=== PATIENT | female | born 1975 | race Caucasian/White ===

== ENCOUNTER 2019-12-20 10:21 | Emergency (ER) | payer OTHER ==
[~2019-12-20] VITALS: Ht 160 cm; Wt 100.0 kg
--- NOTE | 2019-12-20 10:56 | NUR ---
pt presents to ED with c/o right lower abd pain onset last night, nausea and vaginal bleeding onset this am. pt notes vaginal bleeding is as if she was on her period, however states "I just got done with my period and usually I'm very regular." denies cough, sore throat, fevers. pt has had contact with a covid positive person (one week ago), as she is a healthcare worker. pt placed on droplet plus contact precautions, nurse charge rn notified. pt placed on bp and spo2 monitors. pt reports 7/10 abd pain at this time, refusing any medication at this time. clean catch urine provided by pt, walked to lab. call light in reach, blanket provided. awaiting US/lab and urine results. pt updated with POC.
[2019-12-20 10:59] LABS: MICROSCOPIC INDICATED
[2019-12-20 11:00] LABS: BASOPHILS # (AUTO) 0.04 x10^3/uL (0-0.1); BASOPHILS % (AUTO) 0 % (0-1); EOSINOPHILS # (AUTO) 0.08 x10^3/uL (0-0.4); EOSINOPHILS % (AUTO) 1 % (1-7); LYMPHOCYTES # (AUTO) 2.35 x10^3/uL (1-3.4); LYMPHOCYTES % (AUTO) 25 % (22-44); MD NO; MEAN CORPUSCULAR HEMOGLOBIN 29.7 pg (27.0-34.8); MEAN CORPUSCULAR HGB CONC 32.8 g/dL (32.4-35.8); MEAN CORPUSCULAR VOLUME 90.4 fL (80-100); MEAN PLATELET VOLUME 7.7 fL (7.4-10.4); MONOCYTES # (AUTO) 0.71 x10^3/uL (0.2-0.8); MONOCYTES % (AUTO) 8 % (2-9); NEUTROPHILS # (AUTO) 6.31 x10^3/uL (1.8-6.8); NEUTROPHILS % (AUTO) 67 % (42-75); PLATELET COUNT 357 x10^3/uL (130-400); RED BLOOD COUNT 5.07 x10^6/uL (3.82-5.3); RED CELL DISTRIBUTION WIDTH 14.7 % (9.6-15.2)
[2019-12-20] MEDS ORDERED: ONDANSETRON 2MG/ML, 2ML IVPush ONE (11:00)
[2019-12-20] MEDS ORDERED: MORPHINE SULFATE 4 MG/ML, 1ML IVPush ONE (11:00)
[2019-12-20 11:09] LABS: ALBUMIN 3.4 g/dL (3.4-5.0); ANION GAP 11 mmol/L (5-15); CALCIUM 8.3 mg/dL (8.5-10.1); CHLORIDE 107 mmol/L (98-107)
--- NOTE | 2019-12-20 11:10 | NUR ---
PT TAKEN TO US AT THIS TIME.
[2019-12-20 11:16] LABS: ALANINE AMINOTRANSFERASE 28 U/L (12-78); ALKALINE PHOSPHATASE 115 U/L (45-117); BILIRUBIN,TOTAL 0.3 mg/dL (0.2-1.0); CREATININE 0.74 mg/dL (0.55-1.02)
[2019-12-20 11:51] VITALS: BP 120/70
--- NOTE | 2019-12-20 11:52 | NUR ---
pt back from US, states right lower abd pain still /, pt continues to refuse medication. pt a&o, resps even and unlabored, nadn. pt attached to bp and spo2 monitors, call light in reach. awaiting US read and dispo.
--- NOTE | 2019-12-20 12:12 | NUR ---
all results back, chart up for recheck. awaiting MD and orders.
== END 2019-12-20 13:37 | disposition home or self-care (01) ==
LOC: ED 10:49
DX: R10.31 Right lower quadrant pain (principal); R10.2 Pelvic and perineal pain; N93.9 Abnormal uterine and vaginal bleeding, unspecified; F17.290 Nicotine dependence, other tobacco product, uncomplicated; Z98.51 Tubal ligation status
CPT/HCPCS: 36415; 76830; 80053; 81001; 84703; 85025; 99284

== ENCOUNTER 2020-02-15 09:03 | Outpatient (CLI) | payer OTHER | END 2020-02-15 23:59 | disposition home or self-care (01) | LOC: CFH 09:03 | PROVIDERS: ATTEND Nurse Practitioner | DX: M17.11 Unilateral primary osteoarthritis, right knee (principal); M25.461 Effusion, right knee; M25.761 Osteophyte, right knee; M94.261 Chondromalacia, right knee ==